=== PATIENT | male | born 2000 | race Caucasian/White ===

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

== ENCOUNTER 2019-01-02 23:22 | Emergency (ER) | payer MEDICAID ==
[~2019-01-02] VITALS: Ht 167.6 cm; Wt 99.8 kg
[2019-01-02 23:40] VITALS: BP_SYST 145
[2019-01-03] MEDS ORDERED: CEPHALEXIN 500 MG CAPSULE PO ONE
[2019-01-03] MEDS ORDERED: SULFAMETHOXAZOLE/TRIMETHOPR DS 1 TABLET PO ONE
[2019-01-03 00:15] VITALS: BP_SYST 130
== END 2019-01-03 00:15 | disposition home or self-care (01) ==
LOC: SED 23:22
DX: L02.416 Cutaneous abscess of left lower limb (principal); L02.215 Cutaneous abscess of perineum
CPT/HCPCS: 99283